=== PATIENT | male | born 1960 | race Caucasian/White ===

== ENCOUNTER 2025-03-20 10:38 | Outpatient (REF) | payer OTHER, SELFPAY ==
[2025-03-20 14:06] LABS: MANUAL DIFF FLAG NO
[2025-03-20 14:08] LABS: Hematocrit 43.5 % (42.0-52.0); Hemoglobin 14.7 g/dl (14.0-18.0); Imm Gran Abs Auto 0.04 X10*3/uL (0.00-0.03); Imm Gran Pct Auto 0.6 % (0.0-0.4); Lymphocytes Absolute Auto 1.5 X10*3/uL (1.2-4.9); Mean Corpuscular HGB Conc 33.8 g/dl (31.0-36.0); Mean Corpuscular Hemoglobin 31.4 pg (27.0-33.0); Mean Corpuscular Volume 92.9 fL (80.0-98.0); NRBC Abs Auto 0.000 X10*3/uL (0.0-0.012); NRBC Pct Auto 0.0 /100WBC (0.0-0.2); Platelet Count 240 X10*3/uL (160-400); Red Blood Count 4.68 X10*6/uL (4.60-5.80); White Blood Count 6.7 X10*3/uL (4.8-10.8)
[2025-03-20 14:27] LABS: Appearance Urine Turbid; Glucose Urine UA Negative (Negative); PH 5.0 (5.0-9.0); Specific Gravity - Urine 1.025 (1.005-1.025); UMIC TRIGGER UACC YES
[2025-03-20 14:28] LABS: Other Crystals Urine Present; UACC Culture Trigger YES
[2025-03-20 14:43] LABS: Microalbum/Creatinine Ratio Ur 11.5 ug/mg cr (<30)
[2025-03-20 14:49] LABS: Alanine Aminotransferase 73 U/L (0-40); Albumin Level 4.7 g/dL (3.5-5.0); Alkaline Phosphatase 85 U/L (39-117); Anion Gap 12 (12-20); Aspartate Amino Transferase 59 U/L (5-37); Blood Urea Nitrogen 13 mg/dL (9-16); Calcium 9.4 mg/dL (8.4-10.2); Carbon Dioxide 28 mmol/L (22-29); Chloride 105 mmol/L (96-108); Cholesterol 213 mg/dL (<200); Estimated Glomerular Filt Rate > 60; HDL Cholesterol 66 mg/dL (>40); Magnesium 1.9 mg/dL (1.6-2.6); Potassium 4.1 mmol/L (3.3-5.1); Sodium 141 mmol/L (135-145); Total Protein 7.7 g/dL (6.5-8.0); Triglycerides 67 mg/dL (<150)
[2025-03-20 15:05] LABS: Folate 5.4 ng/mL (> or = 4.0); Vitamin B12 283 pg/mL (200-900)
[2025-03-21 03:43] LABS: Syphilis Screen Nonreactive (Nonreactive)
[2025-03-21 03:58] LABS: HBS Num1 0.00 mIU/mL (0-7.99); HBsAGNum1 0.35 S/CO (0.00-0.99); HIV Num 1 0.05 S/CO (0.00-0.99); Hepatitis B Surface Antigen Negative (Negative); ~HepC Num1 0.12 S/CO (0.00-0.79); ~Hepatitis B Surface Antibody NONREACTIVE (Nonreactive); ~Hepatitis C Antibody Nonreactive (Nonreactive)
[2025-03-24 15:23] LABS: Vitamin D 25-OH, D2 <4 ng/mL; Vitamin D 25-OH, D3 13 ng/mL; Vitamin D 25-OH, Total 13 ng/mL (30-100)
== END 2025-03-20 10:39 | disposition home or self-care (01) ==
LOC: HO.HKASLDS 10:38
PROVIDERS: PCP Student in an Organized Health Care Education/Training Program; Visit Provider Student in an Organized Health Care Education/Training Program
DX: I11.9 Hypertensive heart disease without heart failure (principal); R00.2 Palpitations; I45.10 Unspecified right bundle-branch block; R06.00 Dyspnea, unspecified; M41.9 Scoliosis, unspecified; M54.9 Dorsalgia, unspecified; R00.0 Tachycardia, unspecified; R06.09 Other forms of dyspnea; F43.23 Adjustment disorder with mixed anxiety and depressed mood; K43.2 Incisional hernia without obstruction or gangrene; F10.90 Alcohol use, unspecified, uncomplicated; L60.2 Onychogryphosis; H61.20 Impacted cerumen, unspecified ear; F17.210 Nicotine dependence, cigarettes, uncomplicated; Z13.1 Encounter for screening for diabetes mellitus; Z13.6 Encounter for screening for cardiovascular disorders
CPT/HCPCS: 36415; 80053; 80061; 81001; 81003; 82043; 82306; 82570; 82607; 82746; 83036; 83735; 84443; 85025; 86706; 86780; 86803; 87086; 87340; 87389; 96127

== ENCOUNTER 2025-03-20 10:38 | Outpatient (AMB) | payer OTHER, SELFPAY ==
--- NOTE | 2025-03-20 10:40 | A.OFFPC_ITS ---
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: No Accompanied by: Sister Allergies No Known Allergies Allergy (Verified 03/20/25 10:44) Medication List - Last Reconciled 03/21/25 by Poncho Ewing MD albuterol sulfate 90 mcg/actuation (Ventolin HFA) 2 puffs inhalation Q6H PRN amlodipine 10 mg PO DAILY [blood pressure kit As directed] carbamide peroxide 6.5% (Debrox) 5 drps otic (ears) Q12H 4 days nitrofurantoin macrocrystal 100 mg PO Q12H Tobacco use date assessed: 03/20/25 Dental Screening Dental Screen Date: 03/20/25 Did you have a dental visit in the last 12 months?: Yes Did you have a dental problem in the last 6 months where you did not have access to dental care?: No Was dental information given to patient?: Patient has dentist HPI HPI Comments History of Present Illness Details History of Present Illness The patient is a 64 year old male presenting to establish primary care and for evaluation of multiple chronic issues. Uncontrolled Hypertension: The patient has a history of unmanaged hypertension since at least 2016. On May 07, 2016, his blood pressure was incidentally noted to be 185/107 mmHg with a pulse of 108 bpm. His elevated blood pressure was noted again on December 12, 2022, and he was advised to see a PCP for management. Subsequent readings include 181/107 mmHg, thought to be related to recent smoking, and 160/96 mmHg during an urgent care visit on March 13. He does not take any medications for blood pressure as he has not been under a doctor's care. Cardiac Symptoms: The patient reports experiencing heart palpitations. He also feels pressure in his chest when placing his hands in certain positions while working. On March 13, he went to urgent care for shortness of breath, where his pulse was 114 bpm. An EKG performed at that visit was abnormal, showing sinus tachycardia, posterior left atrial enlargement, and a right bundle branch block. He was advised to go to the emergency department for further evaluation but did not go, reportedly due to financial concerns. Dyspnea: He reports struggling to breathe on some days, which causes him to miss work. This has led to a decline in his ability to work full-time. He has been using an vrwa-uvu-cpkacbz epinephrine inhaler, Primatene Mist, which he reports has been helpful. 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 Scoliosis and Back Pain: The patient has a history of scoliosis since childhood. He is currently experiencing back issues that are preventing him from working consistently. He has been seeing a chiropractor for his scoliosis for the past 27 years. Tobacco Use: The patient has been smoking for about 20 years and currently smokes about 10 cigarettes per day (half a pack). When asked, he stated that he does not want to quit smoking at this time. Surgical History: - Cholecystectomy - Hernia repair - Tooth extractions Medications: - Primatene Mist (epinephrine inhaler), [id number], used as needed for shortness of breath. Social History: - Tobacco Use: He has a 20-year history of smoking approximately 10 cigarettes per day. He denies interest in quitting at this time. - Substance Use: He denies any other mat g use. 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 Family History: - Sister has stage 4 colon cancer and mo [facility] cancer. - There is a strong family history of di abetes. 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 Diagnostic Results: - Vitals (Past): Blood pressure was 185/ 107 mmHg on 05/07/2016, 181/107 mmHg on an unspecified date in 2022, and 160/96 mmHg on 03/13/2023. - EKG (Urgent Care, 03/13/2023): Abnorma l, showed sinus tachycardia, posterior left atrial enlargement, and a right bundle branch block. Past Medical History - Scoliosis since childhood - Hypertension, diagnosed in 2016 - Thumb laceration in 2016 - Cerumen impaction in 2022 Health Maintenance - The patient has not seen a primary car e provider in over a decade. - He has never had a colonoscopy and is due for screening, especially given his sister has stage 4 colon cancer. - He has never had a low-dose CT scan of the lungs for lung cancer screening and qualifies based on his age and smoking history. - Allergies: No known drug allergies. 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 1. Little interest or pleasure in doing things: several days 2. Feeling down, depressed, or hopeless: not at all 3. Trouble falling or staying asleep, or sleeping too much: more than half the days 4. Feeling tired or having little energy: not at all 5. Poor appetite or overeating: nearly every day 6. Feeling bad about yourself - or that you are a failure or have let yourself or your family down: not at all 7. Trouble concentrating on things, such as reading the newspaper or watching television: not at all 8. Moving or speaking so slowly that other people could have noticed. Or the opposite - being so fidgety or restless that you have been moving around a lot more than usual: more than half the days 9. Thoughts that you would be better off or of hurting yourself in some way: not at all Total score: 8 Depression Screening Interpretation: Negative Depression Screening Done: Yes 06396 - PHQ-9 Billing: Yes Source: Developed by Drs. Felice Singer, Faye BJoe Banda and colleagues, with an educational marcus from [employer]. Thrive Questionnaire Date Thrive assessed: 03/20/25 I am a: Patient What is your living situation today?: I have a place to live, but I am worried about losing it in the future Within the past 12 months, did the food you bought not last and you didn't have the money to get more?: Never true Within the past 12 months, did you worry whether your food would run out before you got money to buy more?: Sometimes True Do you have trouble paying for medicines?: Yes Do you have trouble getting transportation to medical appointments?: No Do you have trouble paying your heating and electricity bill?: Yes Do you have trouble taking care of your child, family member or friend?: No Do you have trouble with day-to-day activities such as bathing, preparing meals, shopping, managing finances, etc.?: No Are you currently unemployed and looking for a job?: No Are you interested in more education?: No Currently or been in a relationship where the following occur: No concerns reported THRIVE Score: 3 AUDIT C Alcohol Use Questionnaire (AUDIT-C) 1. How often do you have a drink containing alcohol?: 4 or more times a week 2. How many drinks containing alcohol do you have on a typical day when you are drinking?: 3 or 4 3. How often do you have six or more drinks on one occasion?: Less than monthly Total Score: 6 NED-7 AMB Questionnaire NED-7 Date NED - 7 assessed: 03/20/25 Feeling nervous, anxious, or on edge: 0 = Not at all Not being able to stop or control worryin = Nearly every day Worrying too much about different things: 2 = More than half the days Trouble relaxin = More than half the days Being so restless that it is hard to sit still: 2 = More than half the days Becoming easily annoyed or irritable: 0 = Not at all Feeling afraid as if something awful might happen: 3 = Nearly every day Total NED-7 score (0-4 normal; 5-9 mild; 10-14 moderate; 15-21 severe): 12 Source: Developed by Drs. Felice Singer, Joe Brenner and colleagues, with an educational marcus from [employer]. NED-7 Assessment Billing NED-7 Assessment Tool: NED-7 Assessment 92696 Review of Systems Narrative Review of Systems - Constitutional: Reports sleeping well. - Denies waking up in the middle of the night gasping for air. - HEENT: Reports having a lot of wax in his ears. - Denies snoring. - Cardiovascular: Reports heart palpitations. - Reports chest pressure with certain hand movements. - Respiratory: Reports struggling to breathe at times. - Musculoskeletal: Reports back issues. - Gastrointestinal: Reports going to the bathroom okay. 10-point ROS reviewed and negative except as noted in HPI Physical exam (Primary Care) Vital Signs: Last Vital Signs Temp 97.6 F 03/20/25 10:48 Pulse 94 03/20/25 10:48 Resp 17 03/20/25 10:48 BP 158/110 H 03/20/25 10:54 Pulse Ox 97 03/20/25 10:48 Oxygen Delivery Method Room Air 03/20/25 10:48 BMI result Body Mass Index 26.3 Tobacco/Smoking Status: Tobacco use Status Tobacco use date assessed 03/20/25 03/20/25 10:51 Patient Tobacco Use Status Current everyday Tobacco 03/20/25 10:51 e-Cigarette/Vaping Use Never Used 03/20/25 10:51 PHQ-9: PHQ-9 Score PHQ-9: Total score 8 03/21/25 17:41 Depression Screening Interpretation: Negative Thrive Assessment: Date of Thrive Assessment Date Thrive assessed 03/20/25 03/20/25 10:43 Currently or been in a relationship where the following occur: No concerns reported Narrative Physical Exam General: Well-appearing, in no acute distress. Vital signs: Hypertension noted, blood pressure recorded at 160/96. Tachycardia with pulse recorded at 114. HEENT: Normocephalic, atraumatic. PERRLA, EOMI. Conjunctiva clear, sclera anicteric. Oropharynx clear, mucous membranes moist. Unable to examine tympanic membranes due to cerumen impaction. Neck: Supple, no lymphadenopathy, no thyromegaly, no JVD or carotid bruits. Cardiovascular: Tachycardia noted, abnormal EKG showing sinus tachycardia, posterior left atrial enlargement, and right bundle branch block. Peripheral pulses 2+ and symmetric. No edema. Respiratory: Reports difficulty breathing, uses cosu-loe-sfsbnhh inhaler. Lungs clear to auscultation bilaterally, no wheezes, rales, or rhonchi. Normal effort. Abdomen: Soft, non-tender, non-distended. Normoactive bowel sounds. No hepatosplenomegaly, no masses. MSK: Full range of motion, no joint swelling or deformity. Normal gait. Scoliosis noted. Skin: Warm, dry, intact. No rashes, lesions, or pallor. History of benign skin cancer. Neuro: Alert and oriented x3. Cranial nerves II-XII intact. Strength 5/5 throughout. Sensation intact. Reflexes 2+ symmetric. Normal coordination and gait. Psych: Appropriate mood and affect. Normal judgment and insight. Coding Level of Care Code New Pt Level 4 (01800) Add On Problem Visit Only Diagnoses Uncontrolled hypertension I10 Palpitations R00.2 Tachycardia R00.0 Exertional dyspnea R06.09 Tobacco use Z72.0 Atrial enlargement, left I51.7 Right bundle-branch block I45.10 Adjustment disorder with mixed anxiety and depressed mood F43.23 Hypertension I10 Incisional hernia K43.2 Scoliosis M41.9 Back pain M54.9 Alcohol use F10.90 Overgrown toenails L60.2 Screening for skin cancer Z12.83 Cerumen impaction H61.20 Additional Codes NED-7 Assessment Billing - NED-7 Assessment Tool: NED-7 Assessment 57536 ([id number]) PHQ-9 - 88642 - PHQ-9 Billing: Yes ([id number]) Assessment & Plan Assessment & Plan (1) Uncontrolled hypertension: Code(s): I10 - Essential (primary) hypertension Category: Medical (2) Palpitations: Code(s): R00.2 - Palpitations Category: Medical (3) Tachycardia: Code(s): R00.0 - Tachycardia, unspecified Category: Medical (4) Exertional dyspnea: Code(s): R06.09 - Other forms of dyspnea Category: Medical (5) Tobacco use: Code(s): Z72.0 - Tobacco use Category: Social Hx (6) Atrial enlargement, left: Code(s): I51.7 - Cardiomegaly Category: Medical (7) Right bundle-branch block: Code(s): I45.10 - Unspecified right bundle-branch block Category: Medical (8) Adjustment disorder with mixed anxiety and depressed mood: Code(s): F43.23 - Adjustment disorder with mixed anxiety and depressed mood Category: Medical (9) Hypertension: Code(s): I10 - Essential (primary) hypertension Category: Medical (10) Incisional hernia: Code(s): K43.2 - Incisional hernia without obstruction or gangrene Category: Medical (11) Scoliosis: Code(s): M41.9 - Scoliosis, unspecified Category: Medical (12) Back pain: Code(s): M54.9 - Dorsalgia, unspecified Category: Medical (13) Alcohol use: Code(s): F10.90 - Alcohol use, unspecified, uncomplicated Category: Social Hx (14) Overgrown toenails: Code(s): L60.2 - Onychogryphosis Category: Medical (15) Screening for skin cancer: Code(s): Z12.83 - Encounter for screening for malignant neoplasm of skin Category: Medical (16) Cerumen impaction: Code(s): H61.20 - Impacted cerumen, unspecified ear Category: Medical Plan Consent The plan of care, including new medications, extensive lab work, multiple imaging studies, and specialist referrals, was discussed with the patient. The p atient verbally agreed to the proposed plan, including follow-up in two weeks. Patient was informed and verbally consented to the use of an ambient scribe for clinic note documentation during this visit. Plan 1. Cardiac Evaluation (Palpitations, Abnormal Ekg) - An in-house EKG will be performed today to evaluate the electrical activity of the heart. - An echocardiogram has been ordered to assess heart structure and function. - A referral to Cardiology has been placed for further evaluation and management. 2. Dyspnea And Lung Cancer Screening - A prescription for an albuterol inhaler will be sent. - An order for a chest X-ray has been placed. - A referral to Pulmonology has been placed for further evaluation and to arrange a low-dose CT scan for lung cancer screening, given his smoking history. 3. Scoliosis And Chronic Back Pain - A referral to Orthopedics has been placed for evaluation and management. 4. Health Maintenance And Screenings - A referral for a screening colonoscopy has been placed due to age and significant family history of colon cancer. - A referral to Dermatology has been placed for a full body skin exam. - Comprehensive lab work has been ordered, including CBC, CMP, thyroid panel, vitamin levels (B12, D), A1c, lipid panel, and infectious disease screening (Hep B, Hep C, HIV, syphilis). 5. Recurrent Incisional Hernia - A referral to General Surgery has been placed for evaluation of the recurrent hernia. 6. Cerumen Impaction - A prescription for ear drops has been sent to help clear the ear wax. 7. Foot Care - A referral to Podiatry has been placed for routine foot and nail care. 8. Administrative - A letter will be provided to the patient's employer to document his medical care and need for appointments. 9. Uncontrolled Hypertension - Will start amlodipine 10 mg, taken daily in the morning. - Patient instructed on potential side effects, including ankle swelling and constipation. - A blood pressure kit will be provided for home monitoring. - Patient instructed to check blood pressure twice daily and maintain a log, with a goal of <130/80 mmHg. - Follow up in 2 weeks to assess blood pressure response. Discussion Notes I had a detailed discussion with the patient and his state fire marshal regarding his presentation for establishing care after a long interval, with multiple unmanaged and serious chronic medical issues. I explained that his severe, long- standing hypertension is a major concern, especially given the prior EKG findings of right bundle branch block and possible left atrial enlargement, which could be consequences of uncontrolled blood pressure. We reviewed the plan to start amlodipine 10mg, and I educated him on potential side effects like ankle swelling. I emphasized the importance of home blood pressure monitoring and follow-up in two weeks to assess the medication's effectiveness, noting that he will likely require additional medication. We discussed the need for an extensive workup, including comprehensive lab tests, an in-house EKG, an echocardiogram, and a chest x-ray. I explained the rationale for multiple specialist referrals to cardiology, pulmonology, orthopedics, general surgery, dermatology, and podiatry to address each of his specific health problems. I also discussed crucial health maintenance screenings, including a colonoscopy (given his sister's history of colon cancer) and a low-dose CT scan for lung cancer screening (due to his smoking history). The patient was agreeable to the comprehensive plan. Patient Instructions - Take one Amlodipine 10 mg tablet by mouth every morning for your high blood pressure. This medication can sometimes cause swelling in the ankles. - Use the new Albuterol inhaler as prescribed for any shortness of breath. - Use the prescribed ear drops to help clear out the wax in your ears. Use 5 drops in each ear. - Please go to the lab to have your blood drawn today. - You will need to pick up attendant a home blood pressure machine. Check your blood pressure two times a day (in the morning and before bed). Please write down the numbers and bring the log with you to your next visit. - Our office has sent referrals to multiple specialists (Cardiology, Pulmonology, Orthopedics, General Surgery, Dermatology, Podiatry). Their offices will call you to schedule appointments. - You will receive a letter from our office that you can give to your employer regarding your medical care. - Please schedule a follow-up appointment to see me in two weeks. Medical Decision Making This 64-year-old male presents to establish care after more than a decade without medical oversight, revealing multiple significant, unmanaged chronic conditions. The patient's clinical picture is complex, dominated by severe, long-standing hypertension with an initial in-office reading of 207/- and a repeat of 158/-, and a history of significantly elevated readings. This is further complicated by a prior urgent care EKG showing sinus tachycardia, left atrial enlargement, and a right bundle branch block, which are concerning for cardiovascular end-organ damage from his chronic hypertension. Given the severity of his blood pressure and the risk of further complications, I am initiating treatment with amlodipine at the maximum dose of 10 mg. Home BP monitoring is essential to titrate therapy appropriately at his 2-week follow- up, and I anticipate he will need additional agents for control. His symptoms of dyspnea, use of an tnye-rwd-sexllwt epinephrine inhaler, and extensive smoking history necessitate a thorough pulmonary evaluation. A referral to pulmonology for formal evaluation and a low-dose CT scan for lung cancer screening are indicated. The patient's sister's history of stage 4 colon cancer makes a screening colonoscopy a high priority and a referral is placed. Multiple other referrals are necessary to address his scoliosis/back pain, recurrent hernia, and need for skin and foot care. The overall goal is to rapidly initiate management for his high-risk conditions, complete a comprehensive diagnostic workup, and establish care with appropriate specialists to mitigate his significant risk for adverse health events and improve his functional status, which is currently impacting his employment. Total Time Statement 45 min Total time spent caring for the patient today includes pre-visit chart review, documentation, review of laboratory and diagnostic imaging results, medication reconciliation, medically necessary evaluation, counseling on diagnoses, care coordination, ordering appropriate tests and medications, review of tests performed by other providers, reporting test results to the patient, and communication with other healthcare providers. Orders: Orders Comprehensive Met. Panel 03/20/25 Z13.9 - Encounter for screening, unspecified UA CC w/rflx Micro + Cult 03/20/25 Z13.9 - Encounter for screening, unspecified Lipid Panel 03/20/25 Z13.9 - Encounter for screening, unspecified Vitamin B12 and Folate 03/20/25 Z13.9 - Encounter for screening, unspecified Magnesium 03/20/25 Z13.9 - Encounter for screening, unspecified Vitamin D 25-OH (D2 and D3) 03/20/25 Z13.9 - Encounter for screening, unspecified AMB EKG-In Office 03/20/25 Z13.6 - Encounter for screening for cardiovascular disorders Complete Blood Count Auto Diff 03/20/25 Z13.9 - Encounter for screening, unspecified Hepatitis B Surface Antigen 03/20/25 Z13.9 - Encounter for screening, unspecified Syphilis Screen 03/20/25 Z13.9 - Encounter for screening, unspecified Hepatitis C Antibody 03/20/25 Z13.9 - Encounter for screening, unspecified TSH reflex Free T4 03/20/25 Z13.9 - Encounter for screening, unspecified HIV Ab/Ag 03/20/25 Z13.9 - Encounter for screening, unspecified Hemoglobin A1c 03/20/25 Z13.9 - Encounter for screening, unspecified Hepatitis B Surface Antibody 03/20/25 Z13.9 - Encounter for screening, unspecified Microalbumin, Random (w Creat) 03/20/25 Z13.9 - Encounter for screening, unspecified CA echo transthoracic complete 03/20/25 I10 - Essential (primary) hypertension XR chest 2V 03/20/25 R06.00 - Dyspnea, unspecified Referrals Cardiology Referral I10 - Essential (primary) hypertension Pulmonology Referral Z13.9 - Encounter for screening, unspecified Orthopedics Referral M41.9 - Scoliosis, unspecified Open Access Screening Colonoscopy Referral Z12.11 - Encounter for screening for malignant neoplasm of colon, Z12.12 - Encounter for screening for malignant neoplasm of rectum Dermatology Referral Z12.83 - Encounter for screening for malignant neoplasm of skin General Surgery Referral K43.2 - Incisional hernia without obstruction or gangrene Podiatry Referral L60.2 - Onychogryphosis Medications: New carbamide peroxide 6.5% (Debrox) 5 drps otic (ears) Q12H 15 mL 0RF 4 days [blood pressure kit] As directed 1 ea 0RF I10 - Essential (primary) hypertension albuterol sulfate 90 mcg/actuation (Ventolin HFA) 2 puffs inhalation Q6H PRN 8.5 grams 0RF shortness of breath or wheezing amlodipine 10 mg PO DAILY 90 tabs 0RF
[2025-03-20 10:48] VITALS: BP 207/115; PULSE 94; RESP 17; TEMP 36.4; O2SAT 97; BMI 26.3
[2025-03-20 10:54] VITALS: BP 158/110
== END 2025-03-20 11:21 | disposition home or self-care (01) ==
LOC: HO.HMCFMS 10:39
PROVIDERS: Visit Provider Student in an Organized Health Care Education/Training Program
DX: I10 Essential (primary) hypertension (principal); R00.2 Palpitations; R00.0 Tachycardia, unspecified; R06.09 Other forms of dyspnea; I51.7 Cardiomegaly; I45.10 Unspecified right bundle-branch block; F43.23 Adjustment disorder with mixed anxiety and depressed mood; K43.2 Incisional hernia without obstruction or gangrene; M41.9 Scoliosis, unspecified; M54.9 Dorsalgia, unspecified; L60.2 Onychogryphosis; H61.23 Impacted cerumen, bilateral; F17.210 Nicotine dependence, cigarettes, uncomplicated; F10.90 Alcohol use, unspecified, uncomplicated